=== PATIENT | male | born 1960 | race Two or more races ===

== ENCOUNTER 2020-10-21 18:17 | Inpatient (IN) | payer BC ==
[~2020-10-21] VITALS: Ht 182.9 cm; Wt 76.5 kg
[~2020-10-21 18:17] MED LIST: AZIT500T PO; CEFD300C37 PO; FLUT1BLS8 INH; LISI-167 PO; MONT5TAB6 PO; TAMS-11 PO; THEO400T2 PO; TIOT18CA INH
[2020-10-21] MEDS ORDERED: PROPOFOL 100 ML IV ONE (18:22)
[2020-10-21] MEDS ORDERED: PROPOFOL 10 MG/ML, 20ML IVPush ONE (18:30)
[2020-10-21] MEDS ORDERED: DEXAMETHASONE 4 MG/ML, 1ML IVPush ONE (18:30)
[2020-10-21] MEDS ORDERED: SODIUM CHLORIDE FLUSH 10ML SYR IVF ONE (18:30)
[2020-10-21] MEDS ORDERED: PROPOFOL 100 ML IV SCH (18:30)
[2020-10-21] MEDS ORDERED: DEXAMETHASONE 4 MG/ML, 5ML ONE (18:33)
[2020-10-21 18:38] LABS: BASOPHILS % (AUTO) 1 % (0-1); EOSINOPHILS % (AUTO) 0 % (1-7); LYMPHOCYTES % (AUTO) 8 % (22-44); MEAN PLATELET VOLUME 8.2 fL (7.4-10.4); MONOCYTES % (AUTO) 14 % (2-9); NEUTROPHILS % (AUTO) 77 % (42-75); PLATELET COUNT 258 x10^3/uL (130-400); RED BLOOD COUNT 4.89 x10^6/uL (4.38-5.82); RED CELL DISTRIBUTION WIDTH 14.9 % (9.4-14.8)
[2020-10-21 18:40] LABS: MD NO
[2020-10-21] MEDS ORDERED: FENTANYL PF 100 MCG/2ML ONE (18:42)
--- NOTE | 2020-10-21 18:44 | NUR ---
PT brought in by [facility] from [facility] for interfaciltity transport needing higher level of care due to angioedema possibily related to YESSICA I medications. Report recieved from Daljit RN, pt intubated in [place] due to airway protection. RSI medications included NATACHA, Etomidate, & versed. NG & conde placed. Versed & propofol gtt started. During transport pt switched to Ketamine & Versed gtt. UPon arrival pt alert, responds to voice, started on propofol gtt.
--- NOTE | 2020-10-21 18:48 | NUR ---
BEDSIDE REPORT FROM JW BENTON, ASSUMING CARE OF PT AT THIS TIME. PER REPORT PT GOT [facility] FOR COMFORT A FEW MINS AGO
[2020-10-21 18:49] LABS: ALBUMIN 3.7 g/dL (3.4-5.0); ANION GAP 9 mmol/L (5-15); CALCIUM 9.5 mg/dL (8.5-10.1); CHLORIDE 100 mmol/L (98-107)
--- NOTE | 2020-10-21 18:49 | NUR ---
Report to Cindy BENTON
[2020-10-21 18:52] LABS: ALANINE AMINOTRANSFERASE 30 U/L (12-78); ALKALINE PHOSPHATASE 110 U/L (45-117); BILIRUBIN,TOTAL 0.7 mg/dL (0.2-1.0); CREATININE 1.18 mg/dL (0.7-1.3); TOTAL PROTEIN 8.6 g/dL (6.4-8.2)
--- NOTE | 2020-10-21 18:57 | NUR ---
PT HYPOTENSIVE, 82/53, NS BOLUS STARTED, PROPOFOL TITRATED DOWN TO 25MCG/KG/ML
--- NOTE | 2020-10-21 18:59 | NUR ---
RESPIRATORY AT BEDSIDE FOR ORAL CARE AT THIS TIME
[2020-10-21] MEDS ORDERED: FENTANYL PF 100 MCG/2ML IVPush ONE (19:00)
[2020-10-21] MEDS ORDERED: ALBU90AE2 INH (19:06)
[2020-10-21] MEDS ORDERED: EPIN0.3P3 IM (19:06)
[2020-10-21] MEDS ORDERED: THEO400T2 PO (19:06)
[2020-10-21] MEDS ORDERED: LISI-167 PO (19:06)
[2020-10-21] MEDS ORDERED: TIOT18CA INH (19:06)
[2020-10-21] MEDS ORDERED: ALBU1.25 NEB (19:06)
--- NOTE | 2020-10-21 19:16 | NUR ---
DR MARROQUIN AT BEDSIDE FOR ADMIT
--- NOTE | 2020-10-21 19:20 | NUR ---
REPORT CALLED TO YADI AHUMADA READY FOR TRANSFER TO ROOM [id number]
[2020-10-21] MEDS ORDERED: BISACODYL 10 MG SUPP PR PRN ×2 (19:30→20:00)
[2020-10-21] MEDS ORDERED: DEXMEDETOMIDINE 400 MCG in SODIUM CHLORIDE 0.9% 96 ML IV PRN (19:30)
[2020-10-21] MEDS ORDERED: LACTULOSE 20 GM/30 ML UDC NG PRN (19:30)
[2020-10-21] MEDS ORDERED: LIDOCAINE-MPF 1%, 2ML ENDO PRN (19:30)
[2020-10-21] MEDS ORDERED: ONDANSETRON 2MG/ML, 2ML IV PRN (19:30)
[2020-10-21] MEDS ORDERED: SENNA 176 MG/5 ML ORAL SOL NG PRN (19:30)
[2020-10-21] MEDS ORDERED: PHARMACY MAY ADJ FOR RENAL FX MC SCH (19:30)
[2020-10-21] MEDS ORDERED: SENNA/DOCUSATE TABLET NG PRN (19:30)
[2020-10-21] MEDS ORDERED: SODIUM CHLORIDE 0.9%, 500ML IVBOLUS ONE (19:30)
[2020-10-21] MEDS ORDERED: SENNA/DOCUSATE TABLET PO/NG PRN (19:45)
[2020-10-21] MEDS: ALBUTEROL/IPRATROPIUM 2.5MG/0.5MG, 3 ML NPPB SCH (19:54)
[2020-10-21] MEDS ORDERED: POLYETHYLENE GLYCOL 17 GM PACKET PO PRN (20:00)
[2020-10-21] MEDS ORDERED: ONDANSETRON ODT 4 MG PO PRN (20:00)
[2020-10-21] MEDS ORDERED: PROMETHAZINE 25 MG/ML, 1ML IM PRN (20:00)
[2020-10-21] MEDS ORDERED: morphine SULFATE 10 MG/ML, 1ML IVPush PRN (20:00)
[2020-10-21] MEDS ORDERED: hydrALAzine 20 MG/ML, 1ML IVPush PRN (20:00)
[2020-10-21] MEDS ORDERED: DOCUSATE 100 MG CAPSULE PO PRN (20:00)
[2020-10-21] MEDS ORDERED: ACETAMINOPHEN 325 MG TABLET PO PRN (20:00)
[2020-10-21] MEDS ORDERED: ONDANSETRON 2MG/ML, 2ML IVPush PRN (20:00)
[2020-10-21] MEDS ORDERED: OXYcodone IR 5MG TABLET PO PRN (20:00)
[2020-10-21] MEDS: PROPOFOL 100 ML IV PRN (20:55)
[2020-10-21 21:10] VITALS: BP 91/61
[2020-10-21 21:25] VITALS: BP 92/63
[2020-10-21 22:20] VITALS: BP 95/65
[2020-10-21 22:39] VITALS: BP 111/76
[2020-10-21 22:54] VITALS: BP 103/72
[2020-10-21 23:30] VITALS: BP 101/67
[2020-10-21] MEDS: FAMOTIDINE 20 MG/2 ML IVPush SCH (23:30)
[2020-10-21] MEDS: HEPARIN 5,000 UNITS/ML, 1ML SQ SCH (23:33)
[2020-10-22] MEDS: ALBUTEROL/IPRATROPIUM 2.5MG/0.5MG, 3 ML NPPB SCH ×2 (01:00→07:00)
[2020-10-22 04:13] LABS: BASOPHILS % (AUTO) 1 % (0-1); EOSINOPHILS % (AUTO) 0 % (1-7); LYMPHOCYTES % (AUTO) 8 % (22-44); MEAN CORPUSCULAR HEMOGLOBIN 31.1 pg (27.5-34.5); MEAN CORPUSCULAR HGB CONC 34.2 g/dL (33.2-36.2); MEAN PLATELET VOLUME 8.4 fL (7.4-10.4); MONOCYTES % (AUTO) 3 % (2-9); NEUTROPHILS % (AUTO) 89 % (42-75); PLATELET COUNT 238 x10^3/uL (130-400); RED BLOOD COUNT 4.44 x10^6/uL (4.38-5.82); RED CELL DISTRIBUTION WIDTH 14.5 % (9.4-14.8)
[2020-10-22 04:18] LABS: MD NO
[2020-10-22 04:24] LABS: ANION GAP 9 mmol/L (5-15); CHLORIDE 103 mmol/L (98-107); CHOLESTEROL, TOTAL 188 mg/dL (140-239); CREATININE 0.92 mg/dL (0.7-1.3); TRIGLYCERIDES 70 mg/dL (50-200); VLDL CHOLESTEROL 14 mg/dL (0-25)
[2020-10-22 04:34] LABS: CHOL/HDL RATIO 3.1; HDL CHOL % 32 % (26-37); HDL CHOLESTEROL (DIRECT) 61 mg/dL (40-60); LDL CHOLESTEROL,CALCULATED 113 mg/dL (54-169); LDL/HDL RATIO 1.9 (0.5-3.0)
[2020-10-22] MEDS: PROPOFOL 100 ML IV PRN (05:29)
[2020-10-22] MEDS: HEPARIN 5,000 UNITS/ML, 1ML SQ SCH ×3 (05:29→20:45)
[2020-10-22] MEDS ORDERED: MAGNESIUM SULFATE PMX 2GM/50ML 50 ML IV ONE (06:30)
[2020-10-22 07:50] LABS: FREE T4 (FREE THYROXINE) 1.3 ng/dL (0.76-1.46)
[2020-10-22] MEDS: FAMOTIDINE 20 MG/2 ML IVPush SCH ×2 (09:00→20:45)
[2020-10-22] MEDS ORDERED: ALBUTEROL/IPRATROPIUM 2.5MG/0.5MG, 3 ML IPPB PRN (10:00)
[2020-10-22] MEDS: DEXAMETHASONE 4 MG/ML, 1ML IVPush SCH ×3 (11:02→21:50)
[2020-10-22] MEDS: TAMSULOSIN 0.4 MG CAP.ER.24H PO SCH (11:03)
[2020-10-22] MEDS: ALBUTEROL-IPRATROPIUM MDI INH INH SCH ×2 (15:00→20:45)
[2020-10-23] MEDS: ALBUTEROL-IPRATROPIUM MDI INH INH SCH ×2 (03:00→08:28)
[2020-10-23] MEDS: DEXAMETHASONE 4 MG/ML, 1ML IVPush SCH (04:04)
[2020-10-23] MEDS: HEPARIN 5,000 UNITS/ML, 1ML SQ SCH ×2 (04:04→11:30)
[2020-10-23 04:32] LABS: BASOPHILS % (AUTO) 0 % (0-1); EOSINOPHILS % (AUTO) 0 % (1-7); LYMPHOCYTES % (AUTO) 14 % (22-44); MD NO; MEAN CORPUSCULAR HEMOGLOBIN 31.1 pg (27.5-34.5); MEAN CORPUSCULAR HGB CONC 34.3 g/dL (33.2-36.2); MEAN PLATELET VOLUME 8.1 fL (7.4-10.4); MONOCYTES % (AUTO) 10 % (2-9); NEUTROPHILS % (AUTO) 76 % (42-75); PLATELET COUNT 250 x10^3/uL (130-400); RED BLOOD COUNT 4.47 x10^6/uL (4.38-5.82); RED CELL DISTRIBUTION WIDTH 14.4 % (9.4-14.8)
[2020-10-23 04:40] LABS: ANION GAP 8 mmol/L (5-15); CALCIUM 9.2 mg/dL (8.5-10.1); CHLORIDE 103 mmol/L (98-107)
[2020-10-23] MEDS: FAMOTIDINE 20 MG/2 ML IVPush SCH (08:28)
[2020-10-23] MEDS: TAMSULOSIN 0.4 MG CAP.ER.24H PO SCH (08:29)
== END 2020-10-23 13:10 | disposition home or self-care (01) | DRG 915 ==
LOC: ED 18:22 → EDIP 18:28 → ED 18:35 → CCU 19:41 → DCLOUNGE 10-23 13:01
PROVIDERS: ADMIT Internal Medicine; ATTEND Hospitalist
PROC: 30233K1 Transfusion of Nonautologous Frozen Plasma into Peripheral Vein, Percutaneous Approach (ICD-10-PCS; principal; 2020-10-21)
PROC: 5A1935Z Respiratory Ventilation, Less than 24 Consecutive Hours (ICD-10-PCS; 2020-10-21)
DX: T78.3XXA Angioneurotic edema, initial encounter (principal); J96.21 Acute and chronic respiratory failure with hypoxia; Z99.11 Dependence on respirator [ventilator] status; E87.1 Hypo-osmolality and hyponatremia; E87.2 Acidosis; T46.4X5A Adverse effect of angiotensin-converting-enzyme inhibitors, initial encounter; E07.81 Sick-euthyroid syndrome; R33.8 Other retention of urine; N40.1 Benign prostatic hyperplasia with lower urinary tract symptoms; J44.9 Chronic obstructive pulmonary disease, unspecified; I10 Essential (primary) hypertension; Z99.81 Dependence on supplemental oxygen; Z88.1 Allergy status to other antibiotic agents; Z88.0 Allergy status to penicillin; Z87.891 Personal history of nicotine dependence; Z83.3 Family history of diabetes mellitus; Y92.89 Other specified places as the place of occurrence of the external cause
CPT/HCPCS: 36415; 36430; 36600; 71045; 80048; 80053; 80061; 82803; 82962; 83735; 84100; 84439; 84443; 84478; 84481; 85025; 86850; 86900; 87070; 87081; 87205; 93005; 94002; 94003; 94640; 96374; 99291; G0378; J1100; J1644; J2704; J3010; J3475; J7040; P9017